=== PATIENT | female | born 1980 | race Caucasian/White ===

== ENCOUNTER 2020-06-06 12:55 | Emergency (ER) | payer OTHER ==
[~2020-06-06] VITALS: Ht 165.1 cm; Wt 81.7 kg
[~2020-06-06 12:55] MED LIST: ACETAMINOPHEN-1 EAC1 PO; AMOXICILLIN 50500 MG PO; IBUPROFEN 800800 M1 PO; LIDOCAINE VISC100 M1 SWISH&SPIT; NOHOMEMEDICATIONS; NORCO 5-325 TA1 EACH PO; TOBREX5 ML OP
[2020-06-06 13:40] LABS: ABSOLUTE BASOPHILS 0.1 thou/uL (0.0-0.2); ABSOLUTE EOSINOPHILS 0.1 thou/uL (0.0-0.7); ABSOLUTE LYMPHOCYTES 1.6 thou/uL (0.8-5.3); ABSOLUTE MONOCYTES 0.4 thou/uL (0.0-1.2); ABSOLUTE NEUTROPHILS 4.7 thou/uL (1.6-8.1); BASOPHILS 0.9 %; EOSINOPHILS 1.7 %; HEMOGLOBIN 14.8 gm/dL (12.0-15.0); LYMPHOCYTES 22.7 %; MCH 31.3 pg (26.0-34.0); MCHC 35.3 g/dL (28.0-37.0); MCV 88.8 fL (80.0-100.0); MONOCYTES 6.1 %; MPV 7.8 fl. (7.2-11.1); NUCLEATED RBCS 0 /100WBC; PLATELET COUNT* 241 thou/uL (150-400); POLYS 68.6 %; RBC 4.73 mil/uL (4.20-5.00); RDW-CV 12.6 % (10.5-14.5); WBC 6.9 thou/uL (4.0-11.0)
[2020-06-06 13:46] LABS: CALCIUM 9.5 mg/dL (8.5-10.1); CREATININE 0.9 mg/dL (0.6-1.3); POTASSIUM 4.2 mmol/L (3.5-5.1)
[2020-06-06 13:51] LABS: ALBUMIN 3.9 g/dL (3.4-5.0); TOTAL BILIRUBIN 0.3 mg/dL (<0.1-1.0)
[2020-06-06 13:55] LABS: URINE BILIRUBIN NEGATIVE (Negative); URINE BLOOD NEGATIVE (Negative); URINE CLARITY CLEAR; URINE COLOR YELLOW; URINE GLUCOSE-RANDOM NEGATIVE (Negative); URINE KETONES NEGATIVE (Negative); URINE LEUKOCYTES-REFLEX NEGATIVE (Negative); URINE NITRITE-REFLEX NEGATIVE (Negative); URINE PROTEIN NEGATIVE (Negative); URINE UROBILINOGEN 0.2 E.U./dl (0.2-1.0)
[2020-06-06] MEDS ORDERED: VISTARIL 25 MG25 M1 PO (13:58)
[2020-06-06] MEDS ORDERED: XANAX 0.5 MG0.5 MG PO (13:58)
[2020-06-06] MEDS ORDERED: TOPROL XL25 MG PO (13:58)
[2020-06-06] MEDS ORDERED: COZAAR 25 MG TA25 M1 PO (14:27)
[2020-06-06 14:37] VITALS: BP 133/79
--- NOTE | 2020-06-06 16:33 | EKG ---
[place] [address] ELECTROCARDIOGRAM REPORT Name: AIME GAINES Room: [facility]#: [id number] Admission: 06/06/20 Attend Phys: Discharge: 06/06/20 Date of : 80 Date of Service: 06/06/20 1401 Report #: [id number] THIS REPORT FOR: //name// [facility] ED Test Date: 2020-06-06 Test Time: 14:01:08 Pat Name: AIME GAINES Department: Room: Gender: Television Audio Engineer: : [id number] Requested By: Terrie Root Order Number: [id number] MD: Pawel Arita Measurements Intervals [place] Rate: 57 P: 38 DE: 150 QRS: 30 QRSD: 107 T: 5 QT: 434 QTc: 423 Interpretive Statements Sinus rhythm RSR' in V1 or V2, right VCD Baseline wander in lead(s) V4 No previous ECG available for comparison Electronically Signed On 06-06-2020 16:33:42 CDT by Pawel Arita [email or web address] <ELECTRONICALLY SIGNED> By: Pawel Arita MD, [facility] 06/06/20 1633 1401 1401 Pawel Arita MD, [facility] /EPI
== END 2020-06-06 14:37 | disposition home or self-care (01) ==
LOC: M.ERS 12:55
PROVIDERS: Physician Assistant
DX: F41.9 Anxiety disorder, unspecified (principal); I10 Essential (primary) hypertension; F17.210 Nicotine dependence, cigarettes, uncomplicated